=== PATIENT | female | born 1980 | race Caucasian/White ===

== ENCOUNTER 2017-04-22 19:09 | Observation (INO) ==
--- NOTE | 2017-04-22 19:32 | Emergency Department Note ---
Disposition Clinical Impression: Ectopic Qualifiers: Location of ectopic : tubal Intrauterine status: without intrauterine Laterality: right Qualified Code(s): O00.101 - Right tubal without intrauterine Disposition: Admitted As Inpatient Condition: Undetermined Time of Disposition: 21:46 Abdominal Pain HPI - General Chief Complaint: ED Abdominal Pain Stated Complaint: possible ectopic Time Seen by Provider: 04/22/17 19:17 Source: patient Mode of arrival: ambulatory Limitations: no limitations Nursing Notes Reviewed: Yes Vital Signs Reviewed: Yes - History of Present Illness HPI Narrative: 37-year-old female arrives to [facility] emergency Department as a transfer from [facility] by private vehicle for concern for rule out ectopic . The patient states that earlier today she began complaining of right sided flank pain radiating to the right side of her back. The patient thought this was beginning of her menstrual. As the patient started spotting today as well. The patient states however that she had one episode of vomiting and the pain continued to worsen so she decided to the emergency department. Workup at [facility] revealed no acute findings with the exception of a positive test as well as this right sided abdominal pain. The patient was sent to [facility] emergency department for further workup and evaluation to include a transvaginal ultrasound. The patient is very anxious at bedside. She denies any previous history of ectopic , sexually transmitted disease history , history of fallopian tube manipulation. The patient is resting comfortably in the bedside with stable vital signs. No signs of tachycardia or hypertension. She denies any other complaints and abdominal exam is benign to palpation. The patient denies any other vaginal discharge other than a small amount of spotting. The patient has an hCG quantitative level of 1433. Onset (ago): day(s) (1) Consistency: constant Location: R flank Pain Severity: moderate Pain Scale: 5 Quality: cramping Radiation: R flank Migration to: no migration Improves with: nothing Worsens with: nothing Associated symptoms: Reports: vomiting Treatments prior to arrival: none - Related Data LMP (females 10-50): Home Medications Medication Instructions Recorded Confirmed No Known Home Drugs 04/22/17 04/22/17 Allergies Allergy/AdvReac Type Severity Reaction Status Date / Time No Known Allergies Allergy Verified 03/27/15 16:36 All systems ED: reviewed and negative except as stated. Constitutional: Denies: fever, chills, weakness Cardiovascular: Denies: chest pain Respiratory: Denies: dyspnea Gastrointestinal: Reports: abdominal pain, vomiting. Denies: nausea, diarrhea, constipation, hematemesis, melena, hematochezia Genitourinary: Reports: discharge (Spotting). Denies: urgency, dysuria, frequency, hematuria, abnormal menses Musculoskeletal: Denies: back pain, neck pain, arthralgia, myalgia Neurological: Denies: headache Abdominal Pain PMH - Past Medical History Medical history: Reports: no medical history Female Surgical History: Reports: no surgical history : 6 Para: 5 Psychiatric history: Reports: no psych history - Social History Smoking status: Never smoker Alcohol use: Reports: none Drug use: Reports: none Physical Exam - General Limitations: no limitations General appearance: alert, in no apparent distress - Head Head exam: atraumatic, normocephalic, normal inspection - Eye Eye exam: Present: normal appearance, PERRL, EOMI - ENT ENT exam: normal exam, normal oropharynx, mucous membranes moist - Neck Neck exam: Present: normal inspection, full ROM, trachea midline - Chest Chest inspection: Present: normal inspection, symmetric chest wall rise - Respiratory Respiratory exam: Present: normal lung sounds bilaterally - Cardiovascular Cardiovascular exam: Present: regular rate, normal rhythm, normal heart sounds - Abdominal Exam Abdominal exam: Present: soft, Non-Tender. Absent: tenderness, distention, guarding, rebound, rigidity - Extremities Exam Extremities exam: Present: normal inspection, full ROM. Absent: tenderness, pedal edema - Neurological Exam Neurological exam: Present: alert, oriented X3 - Skin Skin exam: Present: warm, dry, intact, normal color Course - Consultations Consultation #1: We spoke with Dr. Diego in [facility] who will be seeing the patient in the emergency department. Time: 21:22 Vital Signs Temperature 98 F 04/22/17 19:11 Pulse Rate 115 04/22/17 19:11 Respiratory Rate 16 04/22/17 19:11 Blood Pressure 117/72 04/22/17 19:11 O2 Sat by Pulse Oximetry 97 04/22/17 19:11 Temperature 98 F 04/22/17 19:11 Pulse Rate 115 04/22/17 19:11 Respiratory Rate 16 04/22/17 19:11 Blood Pressure 117/72 04/22/17 19:11 O2 Sat by Pulse Oximetry 97 04/22/17 19:11 Oxygen Delivery Oxygen Delivery Room Air Abdominal Pain - MDM Narrative Medical decision making narrative: Findings and ultrasound consistent with ectopic . We spoke with Dr. Diego in [facility] who stated that he is concerned about a true ectopic . At this time he will take the patient to the operating room for further care and workup. Consent was placed at bedside by Dr. Diego. The nursing staff and patient account executive healthcare preparing patient for the operating room. Patient aware and agrees to plan. - Radiology Data Radiology results reviewed: Yes I reviewed the patient's radiology results. Attestation Statement - Attestation Attestation: I examined this patient and my medical decision-making was reviewed with the Resident Physician. I agree with the documented findings, disposition and treatment plan as described except to the extent set forth below. Patient to the ED with a chief complaint of abdominal pain. Patient states this morning she started expressing pain in her right upper abdomen shooting to her back. She went to the ED and had a positive test. She did not know she was . Her last period was 4 weeks ago. She has had some spotting today. Patient's . On exam she is in no acute distress. Her abdomen is soft. Plan. Ultrasound pending. Quant 1433 at [place]. Blood type A positive. Ultrasound shows a possible ectopic. Patient evaluated by OB in the department. Admitted to their service.
--- NOTE | 2017-04-22 21:56 | OB/GYN History & Physical ---
Date of Encounter: 04/22/17 Time of Encounter: 21:50 Assessment and Plan (1) Hemoperitoneum due to rupture of right tubal ectopic Current visit: Yes Status: Acute Patient was scheduled for laparoscopic right salpingostomy possible right salpingectomy possible right salpingo-oophorectomy (2) Ectopic Current visit: Yes Status: Acute Qualifiers: Location of ectopic : tubal Intrauterine status: without intrauterine Laterality: right Qualified Code(s): O00.101 - Right tubal without intrauterine (3) Abdominal pain Current visit: No Status: Acute Qualifiers: Abdominal location: right lower quadrant Qualified Code(s): R10.31 - Right lower quadrant pain History of Present Illness HPI: Ms. Genao is a 37 year old female 6 para 5 at approximately 4 weeks who had presented to my Emergency room with complaint of right lower quadrant pain patient states at approximately noon today she is having pain on her right side going into her back when she went to the emergency room where she was diagnosed as being but it did not have the ability get an ultrasound. They sent her up to the [facility] for pelvic ultrasound. Ultrasound shows would be a complex mass in the right adnexa with what appears to be blood around the right adnexa. There is some free fluid within the endometrial cavity but no pole seen. Due to the complex mass seen and what appears to be blood and fact patient having pain recommended surgical intervention. Patient's quantitative hCG is 13,000 and she is Rh+. Patient has been nothing by mouth since 11:00 this morning. Past Med Surg Social Fam HX - Past Medical History Source: patient, old records reviewed Medical history: no medical history Psychiatric history: no psych history - Past Surgical History Surgical History: other ([place] teeth) - Social History Smoking Status: Never smoker Smokeless Tobacco Status: No Alcohol use: none Drug use: none Occupational status: unemployed Current living situation: Home - Independent Recent Out of Country Travel Within the Last 8 Weeks: No Exposure or Possible Exposure to Illness During Travel: No - Additional Family History Additional family history: Family history is noncontributory at this time Obstetrical History - Pregnancies : 6 Para: 5 Livin Medications and Allergies No Known Home Drugs 04/22/17 [History] 3 Allergy/AdvReac Type Severity Reaction Status Date / Time No Known Allergies Allergy Verified 03/27/15 16:36 Review of System OB All systems PM: reviewed and no additional remarkable complaints except as stated - Genitourinary Genitourinary: other (Right lower quadrant pain) Exam - Vital Signs Vital signs: Initial Vital Signs Temp Pulse Resp BP Pulse Ox 98 F 115 16 117/72 97 04/22/17 19:11 04/22/17 19:11 04/22/17 19:11 04/22/17 19:11 04/22/17 19:11 - Constitutional Constitutional: well developed, well nourished, average body habitus, mild distress - HEENT HEENT: EOMI, PERRL - Neck Neck exam: full ROM - Lungs Respiratory exam: CTAB - Cardiovascular Cardiovascular exam: RRR - Abdomen Abdomen: Present: bowel sounds normal, diffuse tenderness (Right lower quadrant) Results All other labs normal.
[2017-04-22] MEDS ORDERED: Bupivacaine/EPI 1:200k 0.25%PF 30 ML VIAL ONE (23:55)
--- NOTE | 2017-04-22 23:55 | Anesthesia Evaluation PreOp ---
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 Significant HX Other Medical History: Denies Any Significant HX Anesthesia History: No Prior Anesthetic Complications, Past Anesthesia ([place] teeth) Alcohol Use: none Drug use: none Medications and Allergies No Known Home Drugs 04/22/17 [History] 3 Allergy/AdvReac Type Severity Reaction Status Date / Time No Known Allergies Allergy Verified 03/27/15 16:36 - Meds/Allergy Pre-op Review Medications Reviewed: Yes Allergies Reviewed: Yes Beta Blockers on Current Med List: No Anesthesia Results - Labs Laboratory Tests 04/22/17 04/22/17 04/22/17 17:18 18:00 18:00 WBC 11.4 H Hgb 13.7 Hct 39.6 Plt Count 322 Beta HCG, Quant 1433 H Urine Test Positive A Impressions Obstetrics Ultrasound 04/22/17 19:27 IMPRESSION: 1. Fluid-filled structure within endometrial canal with irregular borders which may reflect an irregular gestational sac, pseudo gestational sac of ectopic, or mildly complex fluid within the endometrial canal. No normal intrauterine identified. Additionally, there is a complex area adjacent to the right ovary which is nonspecific. A small amount of mildly complex free fluid is also present within the pelvis. Findings potentially could reflect in progress, however, given the indeterminate findings within the right adnexa, ectopic cannot entirely be excluded. Recommend follow-up with serial beta HCG and interval ultrasound as clinically indicated. 2. Critical results were called by Dr. Heladio Patel MD to Dr. Bowman On 04/22/2017 at 20:54. D/ / Heladio Patel MD / Heladio Patel MD Interpreting Provider: Heladio Patel MD Anesthesia Exam Vital Signs Temp Pulse Resp BP Pulse Ox 04/22/17 19:11 98 F 115 16 117/72 97 Intake and Output 04/22/17 04/22/17 04/22/17 07:59 15:59 23:59 Other: Stool Characteristics Normal for Patient Weight 56.699 kg Patient Weight 04/22/17 23:59 Weight 56.699 kg Height: 5'2" Weight: 125# BMI = 23 NPO (# of Hours): MNoc - HEENT Pupil (Motor): Pupils equal, EOMI Mallampati: II Teeth: Normal Oral Opening: Greater than 3 - GLUING MACHINE FEEDER LOC: Oriented GLUING MACHINE FEEDER Motor: Normal RUE, Normal LUE, Normal RLE, Normal LLE, Normal Face GLUING MACHINE FEEDER Sensory: Normal: RUE, LUE, RLE, LLE, Face - Cardiac Rhythm: Regular Murmur: None JVD: No - Pulmonary Breath Sounds: bilateral Clear Respiratory Effort: Symmetrical Anesthesia Assess/Plan ASA Score: 2 Modified [place] Scale for Level of Consciousness: Cooperative, oriented, and tranquil Anesthetic Plan: General Monitoring Plan: Standard Monitors Recovery Plan: PACU Anes Supervising Prov Stmt: Pt seen/evaluated, R&B Discussed, questions answered and consent obtained. Julian Montero MD
[2017-04-23] MEDS ORDERED: Ringers Solution, Lactated 1,000 ML IVC SCH ×2 (00:45→02:52)
[2017-04-23] MEDS ORDERED: Acetaminophen IV 1,000 MG/100 ML INFUS..BTL ONE (00:53)
[2017-04-23] MEDS ORDERED: *HR* FentaNYL (PF) 100 MCG/2 ML VIAL ONE (00:55)
[2017-04-23] MEDS ORDERED: Lidocaine -MPF 4% 5 ML AMPUL ONE (00:55)
[2017-04-23] MEDS ORDERED: Ondansetron 4 MG/2 ML VIAL ONE (00:55)
[2017-04-23] MEDS ORDERED: *HR* Rocuronium Bromide 50 MG/5 ML VIAL ONE (00:55)
[2017-04-23] MEDS ORDERED: *HR* Midazolam HCl 2 MG/2 ML VIAL ONE (00:55)
[2017-04-23] MEDS ORDERED: *HR* Propofol 200 MG/20 ML VIAL IVP ONE (00:55)
[2017-04-23] MEDS ORDERED: *HR* Succinylcholine 200 MG/10 ML VIAL IVP ONE (00:55)
[2017-04-23] MEDS ORDERED: Dexamethasone 4 MG/ML VIAL ONE (00:55)
[2017-04-23] MEDS ORDERED: Lidocaine -MPF 2% 2 ML VIAL ONE (00:55)
[2017-04-23] MEDS ORDERED: *HR* OxyCODONE/APAP 10/325 TABLET PO PRN ×2 (01:43→02:52)
[2017-04-23] MEDS ORDERED: *HR* OxyCODONE/APAP 5/325 TABLET PO PRN ×2 (01:43→02:52)
--- NOTE | 2017-04-23 01:51 | Operative Note ---
Date of procedure: 04/23/17 Pre-op diagnosis: ruptured right ectopic Post-op diagnosis: same Procedure: Laparoscopic right salpingectomy Complications: none Anesthesia: KARIEA Surgeon: Bhavesh Diego Estimated blood loss (cc): 50 Specimen: right fellopian tube with ectopic Condition: stable Disposition: PACU Procedure in Detail: Patient is a 37-year-old 6 para 5 at approximately 4-5 weeks she presented to the emergency room complaining of severe right lower quadrant pain. Patient had an ultrasound which showed a ruptured ectopic on the right side. Patient has start him pain around noon went to the local ER they did a test which was positive and transported to the main campus for the ultrasound because of the blood seen on ultrasound recommended laparoscopic salpingectomy. Procedure: Patient was taken the operating room where general anesthesia was found be adequate. She was placed in the dorsal lithotomy position prepped and draped in usual fashion. Timeout was obtained. A weighted speculum was placed in the vagina the anterior lip of the cervix was grasped with a single-tooth tenaculum uterine manipulator was inserted. Speculum was removed as was then turned to the abdomen. A small infraumbilical incision was made with the scalpel 5 mm blunt trocar was inserted under direct visualization. A pneumoperitoneum was obtained with 4 L of CO2 gas. She was noted to have blood in the pelvis a second incision was made in the right lower quadrant and a 5 mm trocar was inserted an incision was made suprapubically and a 12 mm trocar was inserted. Pelvis was visualized right fallopian tube was swollen and a large clot at the fimbriated end. There is no way to salvage this tube was decided we need to take it off. Using the LigaSure the nasal salpinx was then transected the fallopian tube from the ovary and from the uterus. Specimen was placed in the anterior cul-de-sac pelvis was then copiously irrigated and all the blood was aspirated out. Once the pelvis was clean the specimen was placed into an Endopouch and brought out through the 12 mm incision. She did have some blood around the liver this was irrigated out noted pathology was seen and the procedure was terminated. The pneumoperitoneum was released followed by the removal of the trochars the fascia was closed using 0 Vicryl via [id number] stitch and all 3 skin incisions were closed using a 4-0 Vicryl in a subcuticular manner all needle. Sponge counts were correct 3 she did receive preoperative antibiotics.
--- NOTE | 2017-04-23 02:11 | Anesthesia Evaluation Post Op ---
Date of Encounter: 04/23/17 Time of Encounter: 02:10 - Vital Signs Vital Signs: Vital Signs/O2 Sat/Glucose, Most Current Resp BP 04/23/17 00:21 16 110/72 - Lungs Lungs: Clear Ascult./Percussion - Airway Airway: Non-obstructed - Cardiovascular Regular Rate - Mental Status Mental Status: Alert & Oriented, Answers Appropriately - Pain Pain Scale: 2 Pain Scale used: Numeric (1 - 10) - Nausea Vomiting Nausea Vomiting: Not Present - Hydration Hydration: Tolerates oral liquids - Discharge PostOp Status: Transfer Patient to floor Anes Supervising Prov Stmt: Pt seen/evaluated, VSS And pt has met criteria for discharge to floor. - MD Winston
[2017-04-23 05:31] VITALS: BP 95/56
--- NOTE | 2017-04-23 05:42 | Discharge Summary ---
Date of Encounter: 04/23/17 Time of Encounter: 07:20 - Discharge Diagnosis (1) Hemoperitoneum due to rupture of right tubal ectopic Priority: Primary Status: Acute (2) Ectopic Priority: Secondary Status: Acute Qualifiers: Location of ectopic : tubal Intrauterine status: without intrauterine Laterality: right Qualified Code(s): O00.101 - Right tubal without intrauterine - Discharge Medications Prescriptions: OxyCODONE/APAP 5/325 [Percocet 5/325 MG] 1 each PO Q4HR PRN #42 tablet PRN Reason: Mild To Moderate Pain Home Medications: OxyCODONE/APAP 5/325 [Percocet 5/325 MG] 1 each PO Q4HR PRN #42 tablet 04/23/17 [Rx] Allergies/Adverse Reactions: 3 Allergy/AdvReac Type Severity Reaction Status Date / Time No Known Allergies Allergy Verified 03/27/15 16:36 Date of admission: 04/22/17 22:04 Primary care physician: PCP NONE Discharging clinician: Bhavesh Diego Anticipated date of discharge: 04/23/17 - Patient Status Disposition: Home, Self-Care Functional capacity at discharge: independent ambulation Overall status at discharge: patient is progressing back to baseline - Discharge Instructions Follow Up With: NONE,PCP [Primary Care Provider] - Bhavesh Diego DO [Partnered Physician] - - Diet and Activity Activity: increase activity as tolerated Diet: advance to your usual diet 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 She was diagnosed with a right ectopic with what appeared to be blood in the abdomen. Patient was taken the operating room where she was noted to have a ruptured ectopic and a right salpingectomy was performed. Patient's surgery without any complications she was observed through the night with no complications. She was discharged home with prescription for Percocet 5 mg #42 she will follow-up in the office in 2 weeks. Condition at the time of discharge was stable. Time Attestation: Total time spent providing and/or coordinating discharge services: Exam - Constitutional Vitals: Temp Pulse Resp BP Pulse Ox 98.7 F 78 16 95/56 99 04/23/17 05:30 04/23/17 05:30 04/23/17 05:30 04/23/17 05:30 04/23/17 05:30 General appearance IM: mild distress, A&O X 3 - Respiratory Respiratory exam: Present: CTAB - Cardiovascular Cardiovascular exam IM: Present: RRR - GI/Abdominal GI/Abdominal exam IM: normal bowel sounds Incision: normal, dry, intact, dressed - VTE Documentation of Mechanical Device: Intermittent pneumatic compression device
== END 2017-04-23 10:30 | disposition home or self-care (01) ==
LOC: EMEROO 19:09 → 1NENUOBS 19:09 → 3ANU 23:03 → 1NENUOBS 23:08 → 3ANU 04-23 00:09
PROVIDERS: ADMIT Obstetrics & Gynecology; ATTEND Obstetrics & Gynecology